=== PATIENT | female | born 1955 | race Caucasian/White ===

== ENCOUNTER 2020-06-18 11:59 | Observation (INO) ==
[2020-06-18 12:28] LABS: ABS Eosinophils 0.1 10^3/ul (0-0.6); ABS Lymphocytes 1.5 10^3/ul (1.0-4.8); ABS Monocytes 0.5 10^3/ul (0-0.8); ABS Neutrophils 3.6 10^3/ul (1.5-7.7); Eosinophil % 1.1 %; Hematocrit 42 % (35-47); Hemoglobin 14.4 g/dL (12.0-16.0); Lymphocyte % 26.5 %; Mean Corpuscular HGB Conc 35 g/dL (31-36); Mean Corpuscular Hemoglobin 33 pg (27-31); Mean Corpuscular Volume 94 fL (80-97); Mean Platelet Volume 8.5 fL (7.4-10.4); Platelet Count 240 10^3/uL (150-450); Red Cell Distribution Width 14 % (10-15); White Blood Count 5.6 10^3/uL (3.5-10.8)
[2020-06-18 12:39] LABS: Activated Partial Thrombo Time 27.1 seconds (26.0-38.0); INR 1.07 (0.82-1.09)
[2020-06-18 12:46] LABS: Albumin 4.2 g/dL (3.2-5.2); Albumin/Globulin Ratio 1.5 (1-3); Calcium 9.2 mg/dL (8.6-10.3); EGFR African American 88.7 (>60); EGFR Non-African American 73.3 (>60); Globulin 2.8 g/dL (2-4); Magnesium 2.3 mg/dL (1.9-2.7); Potassium 4.1 mmol/L (3.5-5.0); Total Bilirubin 0.5 mg/dL (0.2-1.0)
[2020-06-18] MEDS ORDERED: Iohexol 350 (CONTRAST) 500 ML MDV IV ONE (16:22)
[2020-06-18] MEDS: Aspirin EC 325 mg TAB.EC PO SCH (18:06)
[2020-06-19 05:37] LABS: HDL Cholesterol 71.2 mg/dL
[2020-06-19] MEDS: Aspirin EC 325 mg TAB.EC PO SCH (07:45)
[2020-06-19 12:50] VITALS: BP 126/71
== END 2020-06-19 14:41 | disposition home or self-care (01) ==
LOC: MEDTELE 11:59 → ED 11:59 → MEDTELE 17:22
PROVIDERS: ADMIT Internal Medicine; ATTEND Internal Medicine